=== PATIENT | female | born 1975 ===

== ENCOUNTER 2022-04-14 18:14 | Emergency (ER) | payer BC ==
[2022-04-14] MEDS ORDERED: LORazepam 2 MG/ML VIAL ONE (18:34)
[2022-04-14] MEDS ORDERED: LEVETIRACETAM 500 MG/5 ML VIAL IV ONE (18:48)
[2022-04-14] MEDS ORDERED: NA CHLORIDE 0.9% 100 ML ONE (18:48)
[2022-04-14 18:50] LABS: Absolute Lymphocytes (CBC) 0.9 K/uL (0.7-4.9); Hematocrit 40.4 % (36.0-45.0); Lymphocytes % 10.9 % (15.3-44.8); MCV 90.8 fL (80-100); MPV 7.9 fL (7.6-11.3); RBC Red Blood Cell Count 4.44 M/uL (3.86-4.86)
[2022-04-14 19:06] LABS: Bilirubin Total 0.3 mg/dL (0.2-1.0); Magnesium 1.6 mg/dL (1.8-2.4); Potassium 3.7 mmol/L (3.5-5.1)
--- NOTE | 2022-04-14 20:35 | RAD REPORT ---
EXAM DESCRIPTION: CT - Head Brain Wo Cont - 04/14/2022 8:22 pm CLINICAL HISTORY: Seizure COMPARISON: 2019 TECHNIQUE: Computed axial tomography of the head was obtained. IV contrast was not requested. All CT scans are performed using dose optimization technique as appropriate and may include automated exposure control or mA/KV adjustment according to patient size. FINDINGS: An intracranial bleed is not seen . The ventricles are normal in caliber. No significant hypodense areas within the brain visualized No extra-axial fluid collection is noted. Fluid within the sinuses/ mastoids is not seen. IMPRESSION: No acute intracranial abnormality is seen. If patient's symptoms persist MRI of the bra in would be recommended.
--- NOTE | 2022-04-14 21:17 | EDPHYS ---
Physician Documentation [facility] Name: Kelly Leyva Age: 46 yrs Sex: Female : 1975 Arrival Date: 04/14/2022 Time: 18:21 Bed 24 Private MD: ED Physician Jaswinder Sanchez HPI: 04/14 18:33 This 46 yrs old Female presents to ER via EMS with complaints of seizures. sd2 18:33 46-year-old female presents via EMS with chief complaint of seizures. The patient has a sd2 history of seizure disorder and currently takes Lamictal and Keppra. Family at bedside reports that they gave her 300 mg of Keppra today prior to arrival due to her having a seizure last night and then 3 further seizures today throughout the day. They report that the patient's daughter has recently and that has caused her increased stress. They did recently increase the patient's Keppra and Lamictal doses. They state the patient normally does not have large grand mall seizures such as the one he had upon arrival to the ER. The patient is currently unresponsive and postictal following a grand mal seizure that was witnessed and aborted with 2 mg of Ativan IV. They deny any recent illness for the patient. Further history is limited at this time due to the mental status of the patient.. Historical: - Allergies: 18:32 No Known Allergies; bentley - Home Meds: 18:32 lamotrigine 200 mg oral tab 1 tab once daily [Active]; Keppra 500 mg Oral tab 1 tab 2 bentley times per day [Active]; - PMHx: 18:32 Seizure; bentley - Immunization history:: Adult Immunizations up to date. - Social history:: Smoking status: Reported history of juuling and/or vaping. ROS: 18:33 Unable to obtain ROS due to altered mental status. sd2 22:14 Constitutional: Negative for fever, chills, and weight loss, Eyes: Negative for injury, kdr pain, redness, and discharge. Exam: 18:33 Constitutional: This is a well developed, well nourished patient who appears sd2 post-ictal and drowsy. Head/Face: Normocephalic, atraumatic. Eyes: EOMI, normal conjunctiva bilaterally, PERRL ENT: Nares patent. No nasal discharge, no septal abnormalities noted. Tongue abrasions noted. Mucous membranes moist. Chest/axilla: Normal chest wall appearance and motion. Nontender with no deformity. Cardiovascular: Tachycardic rate and regular rhythm with a normal S1 and S2. No gallops, murmurs, or rubs. 2+ distal pulses. Respiratory: Lungs have equal breath sounds bilaterally, clear to auscultation and percussion. No rales, rhonchi or wheezes noted. No increased work of breathing, no retractions or nasal flaring. Abdomen/GI: Soft, non-tender, with normal bowel sounds. No guarding or rebound. No evidence of tenderness throughout. Skin: Warm, dry with normal turgor. Normal color with no rashes, no lesions, and no evidence of cellulitis. MS/ Extremity: Pulses equal, no cyanosis. Neurovascular intact. Full, normal range of motion. Ambulatory without difficulty. Neuro: Pt observed moving BUEs but otherwise neuro exam limited 2/2 patient's post-ictal status and inability to follow commands. Psych: Awake, alert, with orientation to person, place and time. Behavior, mood, and affect are within normal limits. Vital Signs: 18:27 BP 107 / 70; Pulse 76; Resp 18; Temp 97.9(T); Pulse Ox 100% on R/A; Weight 54.43 kg; bentley Height 5 ft. 6 in. (167.64 cm); 20:36 BP 93 / 61; Pulse 78; Resp 18; Pulse Ox 97% ; ll3 18:27 Body Mass Index 19.37 (54.43 kg, 167.64 cm) bentley MDM: 18:32 Patient medically screened. sd2 18:38 Differential Diagnosis breakthrough seizure, medication non-compliance, dehydration, sd2 electrolyte abnormality, substance abuse among others. Data reviewed: vital signs, nurses notes. 18:59 Transition of care: After a detail discussion of the patient's case, care is sd2 transferred to Jaswinder Sanchez MD. 04/14 18:33 Order name: CBC with Diff; Complete Time: 19:48 sd2 04/14 18:33 Order name: CMP; Complete Time: 19:48 sd2 04/14 18:33 Order name: Magnesium; Complete Time: 19:48 sd2 04/14 19:49 Order name: CT Head Brain wo Cont; Complete Time: 20:43 kdr Administered Medications: 18:29 Drug: Ativan (LORazepam) 2 mg Route: IVP; Site: right antecubital; bentley 18:31 Follow up: Response: No adverse reaction 18:43 Drug: Keppra (levETIRAcetam) 20 mg/kg Route: IV; Rate: bolus; Site: right antecubital; bentley Disposition Summary: 04/14/22 21:17 Discharge Ordered Location: Home kdr Problem: an acute exacerbation kdr Symptoms: have improved kdr Condition: Stable kdr Diagnosis - Other seizures - Breakthrough kdr Followup: kdr - With: Private Physician - When: 2 - 3 days - Reason: If symptoms return, Further diagnostic work-up, Recheck today's complaints, Continuance of care, Re-evaluation by your physician Discharge Instructions: - Discharge Summary Sheet kdr - Seizure, Adult, [id number] kdr Forms: - Medication Reconciliation Form kdr - Thank You Letter kdr Signatures: Dispatcher [employer] Jaswinder Gomez MD MD kdr Christine Pappas RN RN Aida Perez MD MD sd2
--- NOTE | 2022-04-14 21:17 | ER ---
Nurse's Notes 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 pt maybe non compliant with bentley seizure medication d/t recent lost of daughter. per mother pt was given 200mg of keppra PT. Coronavirus screen: Vaccine status: Patient reports receiving the 2nd dose of the covid vaccine. Ebola Screen: Patient denies travel to an Ebola-affected area in the 21 days before illness onset. Initial Sepsis Screen: Does the patient meet any 2 criteria? No. Patient's initial sepsis screen is negative. Does the patient have a suspected source of infection? No. Patient's initial sepsis screen is negative. Risk Assessment: Do you want to hurt yourself or someone else? Patient reports no desire to harm self or others. Onset of symptoms was April 14, 2022. 18:27 Method Of Arrival: EMS: [facility] 18:27 Acuity: ZOE 2 bentley Triage Assessment: 18:34 General: Appears in no apparent distress. Behavior is drowsy. bentley Historical: - Allergies: 18:32 No Known Allergies; bentley - Home Meds: 18:32 lamotrigine 200 mg oral tab 1 tab once daily [Active]; Keppra 500 mg Oral tab 1 tab 2 bentley times per day [Active]; - PMHx: 18:32 Seizure; bentley - Immunization history:: Adult Immunizations up to date. - Social history:: Smoking status: Reported history of juuling and/or vaping. Screenin:32 Abuse screen: Denies threats or abuse. Denies injuries from another. Nutritional bentley screening: No deficits noted. Tuberculosis screening: No symptoms or risk factors identified. Fall Risk Secondary diagnosis (15 points) seizures, IV access (20 points). Mental Status- Overestimates/Forgets Limitations (15 pts.). Assessment: 18:31 Pain: Denies pain. Neuro: Level of Consciousness is awake, confused, lethargic, bentley Oriented to person, Seizure activity Seizure lasted approximately 2 minutes. Patient is post-ictal at this time. 20:36 Reassessment: No changes from previously documented assessment. Patient and/or family ll3 updated on plan of care and expected duration. Pain level reassessed. Patient is alert, oriented x 3, equal unlabored respirations, skin warm/dry/pink. Vital Signs: 18:27 BP 107 / 70; Pulse 76; Resp 18; Temp 97.9(T); Pulse Ox 100% on R/A; Weight 54.43 kg; bentley Height 5 ft. 6 in. (167.64 cm); 20:36 BP 93 / 61; Pulse 78; Resp 18; Pulse Ox 97% ; ll3 18:27 Body Mass Index 19.37 (54.43 kg, 167.64 cm) bentley ED Course: 18:21 Patient arrived in ED. ds4 18:27 Christine Pappas, LEROY is Primary Nurse. bentley 18:29 Triage completed. bentley 18:32 Aida Matson MD is Attending Physician. sd2 18:32 Patient has correct armband on for positive identification. Bed in low position. Adult bentley w/ patient. Seizure precautions initiated. 18:32 No provider procedures requiring assistance completed. Maintain EMS IV. Gauge \T\ site: bentley 20g rac. 18:34 Arm band placed on. bentley 19:04 Attending Physician role handed off by Aida Matson MD kdr 19:04 Jaswinder Sanchez MD is Attending Physician. kdr 20:24 CT Head Brain wo Cont In Process Unspecified. EDMS 21:30 IV discontinued, intact, bleeding controlled, No redness/swelling at site. Pressure ll3 dressing applied. Administered Medications: 18:29 Drug: Ativan (LORazepam) 2 mg Route: IVP; Site: right antecubital; bentley 18:31 Follow up: Response: No adverse reaction bentley 18:43 Drug: Keppra (levETIRAcetam) 20 mg/kg Route: IV; Rate: bolus; Site: right antecubital; bentley Medication: 18:32 VIS not applicable for this client. bentley Outcome: 21:17 Discharge ordered by . kdr 21:30 Discharged to home via wheelchair, with family. ll3 21:30 Condition: stable 21:30 Discharge instructions given to patient, family, mime artist, Instructed on discharge instructions, follow up and referral plans. Demonstrated understanding of instructions, follow-up care. 21:30 Patient left the ED. ll3 Signatures: Dispatcher [employer] EDJaswinder Rutherford MD MD kdr Swanson, Donovan ds4 Zion De La O RN RN ll3 Christine Pappas RN RN ha Dunlop, Stephanie, MD MD sd2
[2022-04-14 21:35] VITALS: TEMP 97.9
[2022-04-14 21:37] VITALS: BP 93/61; O2SAT 97
== END 2022-04-14 21:30 | disposition home or self-care (01) ==
LOC: ER 18:14
DX: G40.509 Epileptic seizures related to external causes, not intractable, without status epilepticus (principal)
CPT/HCPCS: 85025; 36415; 83735; 80053; 70450; 96375; 96374; 99283; J1953